=== PATIENT | female | born 1965 | race Caucasian/White ===

== ENCOUNTER 2016-08-31 10:50 | Inpatient (IN) | payer OTHER ==
[~2016-08-31] VITALS: Ht 172.7 cm; Wt 102.1 kg
[~2016-08-31 10:50] MED LIST: ADVAIR 250/501 DISK IH; AMITRIPTYLINE H25 MG PO; AMOXICILLIN500 MG PO; BUPROPION HCL100 M1 PO; BUPROPION HCL150 M2 PO; COMBIVENT RESPIM4 GM IH; DOCUSATE SODIU100 MG PO; HYDROCODON-ACE1 EAC8 PO; LYRICA200 MG PO; METOPROLOL SUCC25 MG PO; OXYCODONE HCL15 MG PO; OXYCODONE HCL5 MG PO; PEN-VEE K,VEET500 MG PO; PREDNISONE20 MG PO; PROAIR HFA8.5 GM IH; ROXICODONE15 MG PO; SINGULAIR10 MG PO; SPIRIVA RESPIMAT4 GM IH; TOPROL XL25 MG PO; ZITHROMAX Z-PA250 MG PO; ZYVOX600 MG PO
[2016-08-31 11:37] LABS: EOSINOPHIL (%) 0.1 % (0-5); HEMATOCRIT 32.8 % (36.0-46.0); IMMATURE GRANULOCYTE (%) 0.2 % (0.0-0.7); IMMATURE GRANULOCYTE COUNT 0.2 K/uL; LYMPHOCYTE COUNT 0.5 K/uL (1.0-2.8); MCHC 32.3 G/DL (30.0-36.0); MCV 89.9 FL (83-99); MEAN PLAT.VOLUME 9.3 uM^3 (9.5-12.4); MONOCYTE (%) 3.9 % (3-12); MONOCYTE COUNT 0.3 K/uL (0-0.8); NEUTROPHIL (%) 89.7 % (45-76); NEUTROPHIL COUNT 7.5 K/uL (1.8-6.4); PLATELET COUNT 244 K/uL (156-360); RBC DIS.WIDTH-CV 14.6 % (11.8-14.6); RBC DIS.WIDTH-SD 46.5 % (39-53); RED BLOOD COUNT 3.65 M/uL (3.80-5.20); WHITE BLOOD COUNT 8.4 K/uL (4.1-10.2)
[2016-08-31 11:45] LABS: CHLORIDE 99 mEq/L (99-109); POTASSIUM 4.7 mEq/L (3.7-5.4); SODIUM 133 mEq/L (136-147)
[2016-08-31 11:47] LABS: GLUCOSE 153 mg/dL (70-99)
[2016-08-31 11:49] LABS: ANION GAP 10 MEQ/L (2-14)
[2016-08-31 11:51] LABS: GFR ESTIMATE (CALCULATED) > 59 mL/min/
[2016-08-31 11:52] LABS: UREA NITROGEN (BUN) 16 mg/dL (9-23)
[2016-08-31 12:10] LABS: BASE EXCESS 0.3 mEq/L (-3 to +3); BICARBONATE 27.2 mEq/L (22-26); CARBOXY HGB 5.5 % (0-5); PO2 71 mm Hg (80-100)
[2016-08-31 12:11] LABS: COMMENTS - BLOOD GASES AC+; DEVICE NEBULIZER; O2 FLOW 10 L/MIN; PCO2 54 mm Hg (35-45); SITE RR; TOTAL RESP RATE 16 resp/min; pH 7.31 (7.35-7.45)
[2016-08-31 17:40] VITALS: BP 132/78
[2016-08-31 17:55] VITALS: BP 132/78
[2016-08-31 19:26] VITALS: BP 112/71
[2016-08-31 19:38] LABS: FERRITIN 113 NG/ML (10-291)
[2016-08-31 19:59] LABS: ALKALINE PHOSPHATASE 53 IU/L (3-129); AMYLASE 23 IU/L (1-118); TOTAL BILIRUBIN 0.5 MG/DL (0.0-1.0)
[2016-08-31 21:13] LABS: INFLUENZA A VIRAL ANTIGEN NEGATIVE; INFLUENZA B VIRAL ANTIGEN NEGATIVE
[2016-08-31 22:02] LABS: METH RESISTANT S AUREUS PCR NEGATIVE (NEGATIVE)
[2016-08-31 22:07] LABS: PROBE CHECK PASS; SPECIMEN PROCESSING CONTROL PASS
[2016-08-31 23:00] VITALS: BP 113/69
[2016-09-01 04:10] VITALS: BP 122/73
[2016-09-01 04:25] LABS: ADD MIUA? YES; BILIRUBIN NEGATIVE; BLOOD NEGATIVE; COLOR YELLOW ((YELLOW)); GLUCOSE (STRIP) 100; KETONES NEGATIVE; LEUKOCYTES TRACE; NITRITE NEGATIVE; PH, URINE 5.5 (5-8); PROTEIN (STRIP) NEGATIVE; SPECIFIC GRAVITY 1.023 (1.000-1.030); UROBILINOGEN 0.2 MG/DL (0.2-1.0)
[2016-09-01 04:42] LABS: EPITHELIAL CELLS RARE; MUCUS 1+; RED BLOOD CELLS 0-5 /HPF (0-5); WHITE BLOOD CELLS 0-5 /HPF (0-5)
[2016-09-01 04:43] LABS: BACTERIA 2+; CASTS PRESENT /LPF; CRYSTALS NONE SEEN
[2016-09-01 07:39] LABS: HEMATOCRIT 28.1 % (36.0-46.0); MCH 29.3 PG (29.0-34.0); MCHC 32.7 G/DL (30.0-36.0); MCV 89.5 FL (83-99); PLATELET COUNT 189 K/uL (156-360); RBC DIS.WIDTH-CV 15.1 % (11.8-14.6); RBC DIS.WIDTH-SD 49.2 % (39-53); RED BLOOD COUNT 3.14 M/uL (3.80-5.20); WHITE BLOOD COUNT 9.2 K/uL (4.1-10.2)
[2016-09-01 07:49] LABS: INTERNAL CONTROL VALID? YES
[2016-09-01 08:00] VITALS: BP 143/82
[2016-09-01 08:02] LABS: EOSINOPHIL (%) 0.4 % (0-5); IMMATURE GRANULOCYTE (%) 0.8 % (0.0-0.7); IMMATURE GRANULOCYTE COUNT 0.1 K/uL; LYMPHOCYTE COUNT 0.9 K/uL (1.0-2.8); MONOCYTE (%) 3.1 % (3-12); MONOCYTE COUNT 0.3 K/uL (0-0.8); NEUTROPHIL (%) 85.8 % (45-76); NEUTROPHIL COUNT 7.9 K/uL (1.8-6.4)
[2016-09-01 08:18] LABS: ANION GAP 7 MEQ/L (2-14); CHLORIDE 99 MEQ/L (99-109); GFR ESTIMATE (CALCULATED) > 59 mL/min/; GLUCOSE 102 mg/dL (70-99); POTASSIUM 4.6 MEQ/L (3.7-5.4); SAMPLE HEMOLYSIS CHECK 0; SAMPLE ICTERIC CHECK 0; SAMPLE LIPEMIA CHECK 0; SODIUM 131 MEQ/L (136-147); UREA NITROGEN (BUN) 10 mg/dL (9-23)
[2016-09-01 09:00] VITALS: BP 149/81
[2016-09-01 14:27] VITALS: BP 118/69
[2016-09-01 14:30] LABS: BASE EXCESS 2.6 mEq/L (-3 to +3); BICARBONATE 27.2 mEq/L (22-26); CARBOXY HGB 2.2 % (0-5); COMMENTS - BLOOD GASES NEG A+C+; DEVICE HHFNC; FI02 50 %; METHEMOGLOBIN 1.4 % (0-1.5); O2 FLOW 40 L/MIN; PCO2 41 mm Hg (35-45); PO2 61 mm Hg (80-100); SITE LR; pH 7.43 (7.35-7.45)
[2016-09-01 14:31] LABS: TOTAL RESP RATE 26 resp/min
[2016-09-01 19:59] LABS: HEMATOCRIT 29.9 % (36.0-46.0); MCH 28.4 PG (29.0-34.0); MCHC 32.1 G/DL (30.0-36.0); MCV 88.5 FL (83-99); MEAN PLAT.VOLUME 9.8 uM^3 (9.5-12.4); PLATELET COUNT 185 K/uL (156-360); RBC DIS.WIDTH-CV 15.1 % (11.8-14.6); RED BLOOD COUNT 3.38 M/uL (3.80-5.20); WHITE BLOOD COUNT 10.7 K/uL (4.1-10.2)
[2016-09-01 23:55] VITALS: BP 118/70
[2016-09-02] VITALS (9 sets, daily range): BP systolic 134–178; BP diastolic 86–108
[2016-09-02 02:32] LABS: HEMATOCRIT 29.4 % (36.0-46.0); MCH 29.4 PG (29.0-34.0); MCV 89.1 FL (83-99); MEAN PLAT.VOLUME 9.7 uM^3 (9.5-12.4); PLATELET COUNT 207 K/uL (156-360); RBC DIS.WIDTH-CV 14.9 % (11.8-14.6); RBC DIS.WIDTH-SD 46.6 % (39-53); WHITE BLOOD COUNT 10.4 K/uL (4.1-10.2)
[2016-09-02 02:41] LABS: CHLORIDE 102 mEq/L (99-109); POTASSIUM 3.8 mEq/L (3.7-5.4); SODIUM 136 mEq/L (136-147)
[2016-09-02 02:45] LABS: ANION GAP 10 MEQ/L (2-14); TOTAL BILIRUBIN 0.5 mg/dL (0.0-1.0)
[2016-09-02 02:46] LABS: GLUCOSE 184 mg/dL (70-99)
[2016-09-02 02:47] LABS: ALKALINE PHOSPHATASE 65 IU/L (3-129); GFR ESTIMATE (CALCULATED) > 59 mL/min/
[2016-09-02 02:48] LABS: UREA NITROGEN (BUN) 9 mg/dL (9-23)
[2016-09-02 02:49] LABS: DIRECT BILIRUBIN 0.2 mg/dL (0.0-0.3)
[2016-09-02 02:54] LABS: LIPASE < 1 U/L (1.0-51.0)
[2016-09-02 09:03] LABS: HEMATOCRIT 28.9 % (36.0-46.0); MCH 29.1 PG (29.0-34.0); MCHC 32.9 G/DL (30.0-36.0); MCV 88.7 FL (83-99); MEAN PLAT.VOLUME 9.7 uM^3 (9.5-12.4); PLATELET COUNT 187 K/uL (156-360); RBC DIS.WIDTH-SD 48.5 % (39-53); RED BLOOD COUNT 3.26 M/uL (3.80-5.20); WHITE BLOOD COUNT 9.7 K/uL (4.1-10.2)
[2016-09-02 21:00] LABS: HEMATOCRIT 29.1 % (36.0-46.0); MCH 28.3 PG (29.0-34.0); MCHC 32.3 G/DL (30.0-36.0); MCV 87.7 FL (83-99); MEAN PLAT.VOLUME 9.4 uM^3 (9.5-12.4); PLATELET COUNT 194 K/uL (156-360); RBC DIS.WIDTH-CV 14.9 % (11.8-14.6); RBC DIS.WIDTH-SD 47.8 % (39-53); RED BLOOD COUNT 3.32 M/uL (3.80-5.20); WHITE BLOOD COUNT 9.1 K/uL (4.1-10.2)
[2016-09-02 21:25] LABS: INTERNAL CONTROL VALID? YES
[2016-09-03 04:00] VITALS: BP 144/91
[2016-09-03 07:45] VITALS: BP 133/80
[2016-09-03 08:36] LABS: HEMATOCRIT 27.5 % (36.0-46.0); MCH 28.4 PG (29.0-34.0); MCHC 32.4 G/DL (30.0-36.0); MCV 87.9 FL (83-99); MEAN PLAT.VOLUME 9.8 uM^3 (9.5-12.4); PLATELET COUNT 203 K/uL (156-360); RBC DIS.WIDTH-CV 15.1 % (11.8-14.6); RBC DIS.WIDTH-SD 48.5 % (39-53); RED BLOOD COUNT 3.13 M/uL (3.80-5.20)
[2016-09-03 10:09] LABS: TROP-I INTERPRETATION NEGATIVE; TROPONIN-I 0.02 ng/mL (0.0-0.30)
[2016-09-03 16:00] VITALS: BP 162/99
[2016-09-03 16:59] LABS: ALKALINE PHOSPHATASE 61 IU/L (3-129); AMYLASE 14 IU/L (1-118); DIRECT BILIRUBIN 0.1 mg/dL (0.0-0.3); TOTAL BILIRUBIN 0.3 MG/DL (0.0-1.0)
[2016-09-03 20:00] VITALS: BP 174/100
[2016-09-03 20:20] LABS: C DIFF TOXIN NEGATIVE (NEGATIVE)
[2016-09-03 20:37] LABS: PROBE CHECK PASS; SPECIMEN PROCESSING CONTROL PASS
[2016-09-03 20:40] LABS: HEMATOCRIT 30.6 % (36.0-46.0); MCH 28.1 PG (29.0-34.0); MCHC 31.4 G/DL (30.0-36.0); MCV 89.5 FL (83-99); MEAN PLAT.VOLUME 9.7 uM^3 (9.5-12.4); PLATELET COUNT 243 K/uL (156-360); RBC DIS.WIDTH-CV 15.2 % (11.8-14.6); RBC DIS.WIDTH-SD 49.2 % (39-53); RED BLOOD COUNT 3.42 M/uL (3.80-5.20); WHITE BLOOD COUNT 7.4 K/uL (4.1-10.2)
[2016-09-03 23:55] VITALS: BP 158/70
[2016-09-04] VITALS (7 sets, daily range): BP systolic 132–194; BP diastolic 82–104
[2016-09-04 07:29] LABS: HEMATOCRIT 29.8 % (36.0-46.0); MCH 28.2 PG (29.0-34.0); MCHC 32.2 G/DL (30.0-36.0); MCV 87.6 FL (83-99); MEAN PLAT.VOLUME 9.5 uM^3 (9.5-12.4); PLATELET COUNT 219 K/uL (156-360); RBC DIS.WIDTH-CV 14.6 % (11.8-14.6); RBC DIS.WIDTH-SD 46.4 % (39-53); WHITE BLOOD COUNT 6.4 K/uL (4.1-10.2)
[2016-09-04 08:05] LABS: TROP-I INTERPRETATION NEGATIVE; TROPONIN-I 0.02 ng/mL (0.0-0.30)
[2016-09-04 08:18] LABS: ANION GAP 9 MEQ/L (2-14); CHLORIDE 101 MEQ/L (99-109); GFR ESTIMATE (CALCULATED) > 59 mL/min/; GLUCOSE 180 mg/dL (70-99); POTASSIUM 3.8 MEQ/L (3.7-5.4); SAMPLE HEMOLYSIS CHECK 0; SAMPLE ICTERIC CHECK 0; SAMPLE LIPEMIA CHECK 0; SODIUM 136 MEQ/L (136-147); UREA NITROGEN (BUN) 18 mg/dL (9-23)
[2016-09-05 04:00] VITALS: BP 129/98
[2016-09-05 07:02] LABS: HEMATOCRIT 32.7 % (36.0-46.0); MCH 27.9 PG (29.0-34.0); MCHC 32.1 G/DL (30.0-36.0); MEAN PLAT.VOLUME 9.4 uM^3 (9.5-12.4); PLATELET COUNT 264 K/uL (156-360); RBC DIS.WIDTH-CV 14.6 % (11.8-14.6); RBC DIS.WIDTH-SD 46.1 % (39-53); RED BLOOD COUNT 3.76 M/uL (3.80-5.20); WHITE BLOOD COUNT 7.3 K/uL (4.1-10.2)
[2016-09-05 07:22] LABS: ANION GAP 8 MEQ/L (2-14); CHLORIDE 97 MEQ/L (99-109); GFR ESTIMATE (CALCULATED) > 59 mL/min/; GLUCOSE 146 mg/dL (70-99); POTASSIUM 4.1 MEQ/L (3.7-5.4); SAMPLE HEMOLYSIS CHECK 0; SAMPLE ICTERIC CHECK 0; SAMPLE LIPEMIA CHECK 0; SODIUM 135 MEQ/L (136-147); UREA NITROGEN (BUN) 18 mg/dL (9-23)
[2016-09-05 09:00] VITALS: BP 162/93
[2016-09-05 12:30] VITALS: BP 120/79
[2016-09-05 17:00] VITALS: BP 145/87
[2016-09-05 20:17] VITALS: BP 150/98
[2016-09-06 00:55] VITALS: BP 133/92
[2016-09-06 03:17] VITALS: BP 132/81
[2016-09-06 07:18] VITALS: BP 133/88
[2016-09-06 11:32] VITALS: BP 125/79
[2016-09-06 16:33] VITALS: BP 120/71
[2016-09-06 20:09] VITALS: BP 124/69
[2016-09-07 00:21] VITALS: BP 137/85
[2016-09-07 08:07] VITALS: BP 120/64
[2016-09-07 11:23] LABS: HEMATOCRIT 37.7 % (36.0-46.0); MCH 29.2 PG (29.0-34.0); MCHC 32.9 G/DL (30.0-36.0); MCV 88.9 FL (83-99); MEAN PLAT.VOLUME 9.8 uM^3 (9.5-12.4); PLATELET COUNT 314 K/uL (156-360); RBC DIS.WIDTH-CV 15.3 % (11.8-14.6); RBC DIS.WIDTH-SD 48.7 % (39-53); RED BLOOD COUNT 4.24 M/uL (3.80-5.20)
[2016-09-07 11:28] LABS: WHITE BLOOD COUNT 12.9 K/uL (4.1-10.2)
[2016-09-07 11:39] LABS: ALKALINE PHOSPHATASE 57 IU/L (3-129); ANION GAP 12 MEQ/L (2-14); CHLORIDE 98 MEQ/L (99-109); GFR ESTIMATE (CALCULATED) > 59 mL/min/; GLUCOSE 200 mg/dL (70-99); POTASSIUM 3.9 MEQ/L (3.7-5.4); SAMPLE HEMOLYSIS CHECK 0; SAMPLE ICTERIC CHECK 0; SAMPLE LIPEMIA CHECK 0; SODIUM 136 MEQ/L (136-147); UREA NITROGEN (BUN) 16 mg/dL (9-23)
[2016-09-07 11:40] LABS: TOTAL BILIRUBIN 0.2 MG/DL (0.0-1.0)
[2016-09-07 12:07] VITALS: BP 129/86
[2016-09-07] MEDS ORDERED: LEVOFLOXACIN750 MG PO (14:37)
[2016-09-07] MEDS ORDERED: ASPIR-LOW81 MG PO (14:38)
[2016-09-07] MEDS ORDERED: DIGOXIN250 MCG PO (14:38)
[2016-09-07] MEDS ORDERED: AMLODIPINE BESYL5 MG PO (14:39)
[2016-09-07] MEDS ORDERED: LISINOPRIL20 MG PO (14:39)
[2016-09-07] MEDS ORDERED: PANTOPRAZOLE SO40 MG PO (14:39)
[2016-09-07] MEDS ORDERED: GABAPENTIN300 MG PO (14:39)
[2016-09-07] MEDS ORDERED: PREDNISONE10 MG PO (14:40)
[2016-09-07] MEDS ORDERED: FLORASTOR250 MG PO (14:40)
== END 2016-09-07 15:23 | disposition home health service (06) | DRG 871 ==
LOC: EME 10:50 → 4EAST 12:33 → EDOF 12:33 → 4EAST 12:33 → 2EAST 09-06 15:50
PROVIDERS: Emergency Medicine; Hospitalist; Internal Medicine; Internal Medicine Cardiovascular Disease; Physician Assistant Medical; Specialist
DX: A41.9 Sepsis, unspecified organism (principal); R65.20 Severe sepsis without septic shock; J96.01 Acute respiratory failure with hypoxia; J44.0 Chronic obstructive pulmonary disease with (acute) lower respiratory infection; J15.0 Pneumonia due to Klebsiella pneumoniae; J90 Pleural effusion, not elsewhere classified; J44.1 Chronic obstructive pulmonary disease with (acute) exacerbation; K92.0 Hematemesis; E87.1 Hypo-osmolality and hyponatremia; R19.7 Diarrhea, unspecified; J45.909 Unspecified asthma, uncomplicated; G89.29 Other chronic pain; M54.9 Dorsalgia, unspecified; F31.9 Bipolar disorder, unspecified; D64.9 Anemia, unspecified; E66.9 Obesity, unspecified; K21.9 Gastro-esophageal reflux disease without esophagitis; R33.9 Retention of urine, unspecified; R73.9 Hyperglycemia, unspecified; F17.200 Nicotine dependence, unspecified, uncomplicated; Z88.5 Allergy status to narcotic agent; Z88.2 Allergy status to sulfonamides; Z88.6 Allergy status to analgesic agent; Z99.81 Dependence on supplemental oxygen; Z79.891 Long term (current) use of opiate analgesic; Z68.34 Body mass index [BMI] 34.0-34.9, adult
CPT/HCPCS: 36600; 71010; 71020; 71250; 76705; 76770; 80048; 80053; 80076; 80202; 81003; 82150; 82272; 82533 91; 82728; 82746; 82803; 83605; 83690; 83930; 83935; 84466; 84484; 85025; 85027; 85730; 86850; 86900; 86901; 87040; 87070; 87077; 87086; 87177; 87186; 87205; 87449; 87493; 87502; 87506; 87641; 93005; 94010; 94640; 94640 76; 94667; 94668; 94799; 99202; 99281; 99285; C9113; J0696; J1160; J1170; J1644; J1956; J2543; J2920; J2930; J3370; J7030; J7042; J7050

== ENCOUNTER 2016-09-18 15:19 | Inpatient (IN) | payer OTHER ==
[~2016-09-18] VITALS: Ht 172.7 cm; Wt 102.1 kg
[~2016-09-18 15:19] MED LIST changes: +AMLODIPINE BESYL5 MG PO; +ASPIR-LOW81 MG PO; +DIGOXIN250 MCG PO; +FLORASTOR250 MG PO; +GABAPENTIN300 MG PO; +LEVOFLOXACIN750 MG PO; +LISINOPRIL20 MG PO; +PANTOPRAZOLE SO40 MG PO; +PREDNISONE10 MG PO
[2016-09-18 16:44] LABS: HEMATOCRIT 33.8 % (36.0-46.0); MCH 29.1 PG (29.0-34.0); MCV 91.1 FL (83-99); MEAN PLAT.VOLUME 8.6 uM^3 (9.5-12.4); PLATELET COUNT 286 K/uL (156-360); RBC DIS.WIDTH-CV 16.2 % (11.8-14.6); RBC DIS.WIDTH-SD 52.4 % (39-53); RED BLOOD COUNT 3.71 M/uL (3.80-5.20); WHITE BLOOD COUNT 10.1 K/uL (4.1-10.2)
[2016-09-18 16:48] LABS: EOSINOPHIL COUNT 0.1 K/uL (0-0.3); IMMATURE GRANULOCYTE (%) 0.2 % (0.0-0.7); IMMATURE GRANULOCYTE COUNT 0.2 K/uL; LYMPHOCYTE COUNT 2.6 K/uL (1.0-2.8); MONOCYTE COUNT 0.7 K/uL (0-0.8); NEUTROPHIL (%) 66.4 % (45-76); NEUTROPHIL COUNT 6.7 K/uL (1.8-6.4)
[2016-09-18 16:53] LABS: CHLORIDE 102 mEq/L (99-109); SODIUM 137 mEq/L (136-147)
[2016-09-18 16:56] LABS: GLUCOSE 104 mg/dL (70-99)
[2016-09-18 16:57] LABS: ANION GAP 11 MEQ/L (2-14); TOTAL BILIRUBIN 0.4 mg/dL (0.0-1.0)
[2016-09-18 16:59] LABS: ALKALINE PHOSPHATASE 74 IU/L (3-129); GFR ESTIMATE (CALCULATED) 17 mL/min/
[2016-09-18 17:00] LABS: UREA NITROGEN (BUN) 31 mg/dL (9-23)
[2016-09-18 17:03] LABS: LIPASE 9 U/L (1.0-51.0)
[2016-09-18] MEDS ORDERED: WELLBUTRIN SR100 MG PO (20:21)
[2016-09-18 22:05] LABS: BASE EXCESS 0.3 mEq/L (-3 to +3); BICARBONATE 25.4 mEq/L (22-26); CARBOXY HGB 2.8 % (0-5); COMMENTS - BLOOD GASES A+C+; DEVICE RA; METHEMOGLOBIN 0.9 % (0-1.5); PCO2 42 mm Hg (35-45); PO2 69 mm Hg (80-100); SITE RR; TOTAL RESP RATE 20 resp/min; pH 7.39 (7.35-7.45)
[2016-09-19] VITALS (17 sets, daily range): BP systolic 102–143; BP diastolic 58–87
[2016-09-19 00:08] LABS: ADD MIUA? YES; BILIRUBIN NEGATIVE; BLOOD NEGATIVE; COLOR YELLOW ((YELLOW)); GLUCOSE (STRIP) NEGATIVE; KETONES NEGATIVE; LEUKOCYTES SMALL; NITRITE NEGATIVE; PROTEIN (STRIP) NEGATIVE; SPECIFIC GRAVITY 1.009 (1.000-1.030); UROBILINOGEN 0.2 MG/DL (0.2-1.0)
[2016-09-19 00:26] LABS: INFLUENZA A VIRAL ANTIGEN NEGATIVE; INFLUENZA B VIRAL ANTIGEN NEGATIVE
[2016-09-19 01:13] LABS: BACTERIA NONE SEEN /HPF; EPITHELIAL CELLS 2+ /HPF; MUCUS NONE SEEN /LPF; RED BLOOD CELLS 0-5 /HPF (0-5); WHITE BLOOD CELLS 0-5 /HPF (0-5)
[2016-09-19 08:01] LABS: INTERNAL CONTROL VALID? YES
[2016-09-19 08:02] LABS: INTERNAL CONTROL VALID? YES
[2016-09-19 09:25] LABS: ADD MIUA? NO; BILIRUBIN NEGATIVE; BLOOD NEGATIVE; COLOR YELLOW ((YELLOW)); GLUCOSE (STRIP) >=500; KETONES NEGATIVE; LEUKOCYTES NEGATIVE; NITRITE NEGATIVE; PROTEIN (STRIP) NEGATIVE; SPECIFIC GRAVITY 1.009 (1.000-1.030); UCUL ADDED? NO; UROBILINOGEN 0.2 MG/DL (0.2-1.0)
[2016-09-19 10:10] LABS: ANION GAP 7 MEQ/L (2-14); CHLORIDE 107 MEQ/L (99-109); GFR ESTIMATE (CALCULATED) 46 mL/min/; GLUCOSE 102 mg/dL (70-99); POTASSIUM 4.6 MEQ/L (3.7-5.4); SAMPLE HEMOLYSIS CHECK 0; SAMPLE ICTERIC CHECK 0; SAMPLE LIPEMIA CHECK 0; SODIUM 139 MEQ/L (136-147); UREA NITROGEN (BUN) 22 mg/dL (9-23)
[2016-09-20 04:00] VITALS: BP 119/64
[2016-09-20 08:44] VITALS: BP 136/72
[2016-09-20 11:09] LABS: ANION GAP 5 MEQ/L (2-14); CHLORIDE 104 MEQ/L (99-109); POTASSIUM 4.2 MEQ/L (3.7-5.4); SAMPLE HEMOLYSIS CHECK 0; SAMPLE ICTERIC CHECK 0; SAMPLE LIPEMIA CHECK 0; SODIUM 136 MEQ/L (136-147)
[2016-09-20 11:15] LABS: GFR ESTIMATE (CALCULATED) > 59 mL/min/; GLUCOSE 143 mg/dL (70-99); UREA NITROGEN (BUN) 16 mg/dL (9-23)
[2016-09-20 12:22] VITALS: BP 124/73
[2016-09-20 15:20] VITALS: BP 119/67
[2016-09-20 19:58] VITALS: BP 151/80
[2016-09-20 23:27] VITALS: BP 119/72
[2016-09-21 03:18] VITALS: BP 141/84
[2016-09-21 07:17] LABS: HEMATOCRIT 34.2 % (36.0-46.0); MCHC 32.5 G/DL (30.0-36.0); MCV 89.3 FL (83-99); MEAN PLAT.VOLUME 9.4 uM^3 (9.5-12.4); PLATELET COUNT 238 K/uL (156-360); RBC DIS.WIDTH-CV 15.4 % (11.8-14.6); RBC DIS.WIDTH-SD 49.9 % (39-53); RED BLOOD COUNT 3.83 M/uL (3.80-5.20); WHITE BLOOD COUNT 7.7 K/uL (4.1-10.2)
[2016-09-21 07:40] LABS: ANION GAP 8 MEQ/L (2-14); CHLORIDE 105 MEQ/L (99-109); GFR ESTIMATE (CALCULATED) > 59 mL/min/; GLUCOSE 139 mg/dL (70-99); MAGNESIUM 1.8 mg/dl (1.3-2.7); SAMPLE HEMOLYSIS CHECK 0; SAMPLE ICTERIC CHECK 0; SAMPLE LIPEMIA CHECK 0; SODIUM 136 MEQ/L (136-147); UREA NITROGEN (BUN) 17 mg/dL (9-23)
[2016-09-21 07:41] LABS: POTASSIUM 5.1 MEQ/L (3.7-5.4)
[2016-09-21 08:00] VITALS: BP 130/78
[2016-09-21] MEDS ORDERED: LEVAQUIN500 MG PO (08:34)
[2016-09-21] MEDS ORDERED: PREDNISONE10 MG PO (08:34)
== END 2016-09-21 11:10 | disposition home or self-care (01) | DRG 193 ==
LOC: EME 15:19 → EDOF 20:47 → 2EAST 22:09 → EDOF 22:09 → 2EAST 09-19 00:17
PROVIDERS: Emergency Medicine; Family Medicine; Internal Medicine; Physician Assistant
DX: J18.9 Pneumonia, unspecified organism (principal); J96.01 Acute respiratory failure with hypoxia; N17.9 Acute kidney failure, unspecified; Z99.81 Dependence on supplemental oxygen; F11.10 Opioid abuse, uncomplicated; F31.9 Bipolar disorder, unspecified; G89.29 Other chronic pain; E86.0 Dehydration; J45.40 Moderate persistent asthma, uncomplicated; E66.9 Obesity, unspecified; M25.571 Pain in right ankle and joints of right foot; I10 Essential (primary) hypertension; F17.210 Nicotine dependence, cigarettes, uncomplicated; W19.XXXA Unspecified fall, initial encounter; Y93.9 Activity, unspecified; Y92.9 Unspecified place or not applicable; Y99.9 Unspecified external cause status
CPT/HCPCS: 36600; 71010; 71020; 73610; 74176; 80048; 80053; 81003; 82803; 83605; 83690; 83735; 85025; 85027; 87040; 87070; 87205; 87449; 87502; 94640; 94640 76; 94799; 99202; 99281; 99285; J0696; J1170; J1644; J1720; J1885; J2310; J2543; J3370; J7030; J7050; J7512

== ENCOUNTER 2016-11-29 17:57 | Emergency (ER) | payer OTHER ==
[~2016-11-29] VITALS: Ht 172.7 cm; Wt 96.8 kg
[~2016-11-29 17:57] MED LIST changes: +LEVAQUIN500 MG PO; +WELLBUTRIN SR100 MG PO
[2016-11-29 18:55] LABS: HEMATOCRIT 45.4 % (36.0-46.0); MCH 29.9 PG (29.0-34.0); MCHC 33.5 G/DL (30.0-36.0); MCV 89.2 FL (83-99); PLATELET COUNT 494 K/uL (156-360); RBC DIS.WIDTH-CV 13.7 % (11.8-14.6); RBC DIS.WIDTH-SD 44.8 % (39-53); RED BLOOD COUNT 5.09 M/uL (3.80-5.20); WHITE BLOOD COUNT 11.9 K/uL (4.1-10.2)
[2016-11-29 19:09] LABS: CHLORIDE 102 mEq/L (99-109); POTASSIUM 4.4 mEq/L (3.7-5.4); SODIUM 138 mEq/L (136-147)
[2016-11-29 19:11] LABS: GLUCOSE 128 mg/dL (70-99)
[2016-11-29 19:12] LABS: ANION GAP 12 MEQ/L (2-14)
[2016-11-29 19:13] LABS: TOTAL BILIRUBIN 0.9 mg/dL (0.0-1.0)
[2016-11-29 19:15] LABS: ALKALINE PHOSPHATASE 78 IU/L (3-129); GFR ESTIMATE (CALCULATED) > 59 mL/min/
[2016-11-29 19:16] LABS: UREA NITROGEN (BUN) 17 mg/dL (9-23)
[2016-11-29 19:23] LABS: QUANTITATIVE HCG < 4.0 MIU/ML
[2016-11-30 01:07] VITALS: BP 95/68
== END 2016-11-30 01:09 | disposition home or self-care (01) ==
LOC: EME 17:57
DX: R09.1 Pleurisy (principal); R11.2 Nausea with vomiting, unspecified; Z98.890 Other specified postprocedural states; G89.29 Other chronic pain; J45.909 Unspecified asthma, uncomplicated; I10 Essential (primary) hypertension; Z79.891 Long term (current) use of opiate analgesic; F17.200 Nicotine dependence, unspecified, uncomplicated
CPT/HCPCS: 71020; 80053; 81003; 84702; 85027; 99281; 99285; J1885; J2405; J3010